=== PATIENT | male | born 1955 | race Caucasian/White ===

== ENCOUNTER 2017-01-21 06:16 | Emergency (ER) | payer MEDICAID ==
[~2017-01-21] VITALS: Ht 170.2 cm; Wt 83.5 kg
--- NOTE | 2017-01-21 06:20 | NUR ---
TO BED 5 A 62 YO MALE BIBPA FROM [facility] FOR NON RADIATING LEFT SIDE CHEST PAIN LAST NIGHT AROUND 1999, PATIENT WITH +DDIMER. HERE IN [facility] FOR CTA. UPON ARRIVAL, PATIENT IS AAOX4, DENIES CHEST PAIN, NONDIAPHORETIC. VSS. 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 INITIATED COMFORT AND SAFETY MEASURES. AWAITING FOR ER MD LI.
[2017-01-21] MEDS ORDERED: IOHEXOL-350 100 ML VIAL IV ONE (06:22)
[2017-01-21] MEDS ORDERED: IV NS 0.9% 250 ML IV ONE (06:22)
--- NOTE | 2017-01-21 06:32 | NUR ---
STARTED A SALINE LOCK ON THE LEFT FOREARM G18.
--- NOTE | 2017-01-21 06:33 | NUR ---
DR. LERNER AT BEDSIDE FOR EVAL.
--- NOTE | 2017-01-21 06:50 | NUR ---
Patient back from ct.
[2017-01-21] MEDS ORDERED: ASPIRIN 81 MG TAB.CHEW ONE (06:56)
[2017-01-21] MEDS ORDERED: ASPIRIN 81 MG TAB.CHEW PO ONE (07:00)
--- NOTE | 2017-01-21 10:36 | NUR ---
CALL FOR CT RESULT-- [phone]
[2017-01-21 10:37] VITALS: BP 130/74
--- NOTE | 2017-01-21 10:37 | NUR ---
Patient does not wish to proceed with medical care recommended by Dr. Hough. Patient given information related to possible complications, up to and including , which could occur as a result of leaving the hospital at this time. Patient verbalizes understanding of risks involved due to leaving against medical advice. Patient has signed AMA form.
== END 2017-01-21 10:38 | disposition left against medical advice (07) ==
LOC: ER 06:19
DX: J43.9 Emphysema, unspecified (principal); R07.81 Pleurodynia; I10 Essential (primary) hypertension; F17.210 Nicotine dependence, cigarettes, uncomplicated; Z72.0 Tobacco use; Z79.82 Long term (current) use of aspirin
CPT/HCPCS: 71275; 93005; 99284; A4606; J7050; Q9967; Z7610